=== PATIENT | male | born 1980 | race Caucasian/White ===

== ENCOUNTER 2018-10-04 15:32 | Emergency (ER) | payer SELFPAY ==
[~2018-10-04] VITALS: Ht 149.9 cm; Wt 54.9 kg
[~2018-10-04 15:32] MED LIST: ASPI-1271 PO; METF500T2 PO; MOME0.051 NS; ORE25 PO
[2018-10-04 15:38] VITALS: BP 138/94
[2018-10-04 17:40] VITALS: BP 138/94
== END 2018-10-04 17:40 | disposition home or self-care (01) ==
LOC: MED 15:32
DX: E11.9 Type 2 diabetes mellitus without complications (principal); I10 Essential (primary) hypertension; Z76.0 Encounter for issue of repeat prescription; K21.9 Gastro-esophageal reflux disease without esophagitis; Z79.82 Long term (current) use of aspirin; Z79.84 Long term (current) use of oral hypoglycemic drugs; Z79.899 Other long term (current) drug therapy
CPT/HCPCS: 99283

== ENCOUNTER 2019-09-07 11:49 | Emergency (ER) | payer SELFPAY ==
[~2019-09-07] VITALS: Ht 139.7 cm; Wt 60.3 kg
[2019-09-07 11:55] VITALS: BP 165/94
--- NOTE | 2019-09-07 12:01 | NUR ---
Patient ambulated to bed 1. RN evaluating patient at bedside.
[2019-09-07] MEDS ORDERED: KETOROLAC 60 MG/2 ML VIAL IM ONE (12:10)
--- NOTE | 2019-09-07 12:15 | NUR ---
38/M presents to ED with complaints to right elbow pain and swelling x1 week. Pt has moderate swelling, erythema to right elbow. Pt denies fever or chills. Patient is awake and alert appropriate to age. Yoruba speaking primarily.
[2019-09-07] MEDS ORDERED: HYDROcodone/APAP 5/325 MG 1 TAB TAB PO ONE (13:15)
--- NOTE | 2019-09-07 13:30 | NUR ---
PT IS RESTING IN THE BED WITH EYES OPENED. WILL CONITINUE MONITOR PT.
[2019-09-07 14:29] LABS: BASOPHILS % (AUTO) 0.5 % (0.0-2.0); EOSINOPHILS # (AUTO) 0.1 K/uL (0-0.4); EOSINOPHILS % (AUTO) 0.6 % (0.0-4.0); HEMATOCRIT 39.2 % (36-52); HEMOGLOBIN 13.1 g/dL (12.0-18.0); LYMPHOCYTES # (AUTO) 1.1 K/uL (2.0-11.5); LYMPHOCYTES % (AUTO) 10.7 % (20.5-51.1); MEAN CORPUSCULAR HEMOGLOBIN 31 pg (27-31); MEAN CORPUSCULAR HGB CONC 34 g/dL (33-37); MEAN CORPUSCULAR VOLUME 91.1 fL (80-94); MONOCYTES # (AUTO) 1.3 K/uL (0.8-1.0); MONOCYTES % (AUTO) 12.5 % (1.7-9.3); NEUTROPHILS % (AUTO) 75.7 % (42.2-75.2); PLATELET COUNT (AUTO) 321 K/uL (140-450); RED CELL DISTRIBUTION WIDTH 13.1 % (11.6-13.7); WHITE BLOOD COUNT (AUTO) 10.6 K/uL (4.8-10.8)
[2019-09-07 14:40] LABS: ALBUMIN 2.5 g/dL (3.4-5.0); CARBON DIOXIDE 22.2 mmol/L (21-32); CREATININE 0.8 mg/dL (0.6-1.3); POTASSIUM 3.2 mmol/L (3.5-5.1); TOTAL BILIRUBIN 0.4 mg/dL (0.0-1.0)
--- NOTE | 2019-09-07 14:47 | NUR ---
GLUCOSE [id number]-- MAUDE CONNOR MADE AWARE
[2019-09-07] MEDS ORDERED: KCL 20 MEQ/WATER INJ PREMIX 200 ML IV ONE (14:50)
[2019-09-07] MEDS ORDERED: NACL 0.9% 1,000 ML IV ONE (14:50)
[2019-09-07] MEDS ORDERED: MORPHINE SULFATE 2 MG/ML SYR IVP ONE (15:45)
[2019-09-07] MEDS ORDERED: INSULIN REGULAR, HUMAN 100 UNIT/ML VIAL IVP ONE (16:05)
--- NOTE | 2019-09-07 16:30 | NUR ---
Akira bryan in [facility] - 09/07/19 at 1804 by ALLYSSA PT IS RESTING IN THE BED WITH EYES OPENED. AUGIE SAHU MONITOR PT.
--- NOTE | 2019-09-07 16:30 | NUR ---
PT IS RESTING IN THE BED WITH EYES OPENED. WILL CONITINUE MONITOR PT.
[2019-09-07] MEDS ORDERED: MORPHINE SULFATE 4 MG/ML SYR ONE (16:47)
[2019-09-07] MEDS ORDERED: MORPHINE SULFATE 2 MG/ML SYR ONE (17:47)
[2019-09-07 17:59] VITALS: BP 155/101
--- NOTE | 2019-09-07 17:59 | NUR ---
Note undone in EDM - 09/07/19 at 1804 by MEDOF Patient discharged with v/s stable. Written and verbal after care instructions given and explained. Patient alert, oriented and verbalized understanding of instructions. Ambulatory with steady gait. All questions addressed prior to discharge. ID band removed. Patient advised to follow up with PMD. Rx of Lisinopril, Metformin, Bactrim, Cephalexin, and Tramadol given. Patient educated on indication of medication including possible reaction and side effects. Opportunity to ask questions provided and answered.
== END 2019-09-07 17:59 | disposition home or self-care (01) ==
LOC: MED 11:49
DX: M25.521 Pain in right elbow (principal); L03.90 Cellulitis, unspecified; E11.9 Type 2 diabetes mellitus without complications; I10 Essential (primary) hypertension; K21.9 Gastro-esophageal reflux disease without esophagitis; Z79.899 Other long term (current) drug therapy
CPT/HCPCS: 36415; 73080; 80053; 81002; 82948; 84550; 85025; 96365; 96366; 96375; 99284; J1815; J1885; J2270; J3480; J7030